=== PATIENT | female | born 1945 | race Caucasian/White ===

== ENCOUNTER → 2017-11-18 | Outpatient (CLI) | payer OTHER | END | disposition home or self-care (01) | LOC: NUCLEAR 07:49 | DX: I70.713 Atherosclerosis of other type of bypass graft(s) of the extremities with intermittent claudication, bilateral legs (principal); I87.2 Venous insufficiency (chronic) (peripheral) ==

== ENCOUNTER → 2017-11-19 | Outpatient (CLI) | payer OTHER | END | disposition home or self-care (01) | LOC: NUCLEAR 07:45 | DX: I70.713 Atherosclerosis of other type of bypass graft(s) of the extremities with intermittent claudication, bilateral legs (principal); I73.9 Peripheral vascular disease, unspecified ==

== ENCOUNTER 2018-05-02 07:57 | Outpatient (CLI) | payer OTHER | END 2018-05-02 07:59 | disposition home or self-care (01) | LOC: RAD 07:57 | DX: M25.571 Pain in right ankle and joints of right foot (principal) ==

== ENCOUNTER → 2018-05-02 | Outpatient (CLI) | payer OTHER | END | disposition home or self-care (01) | LOC: NUCLEAR 11:08 | DX: I70.211 Atherosclerosis of native arteries of extremities with intermittent claudication, right leg (principal); I87.2 Venous insufficiency (chronic) (peripheral) ==

== ENCOUNTER → 2018-05-05 | Outpatient (CLI) | payer OTHER | END | disposition home or self-care (01) | LOC: NUCLEAR 10:46 | DX: I70.211 Atherosclerosis of native arteries of extremities with intermittent claudication, right leg (principal) ==

== ENCOUNTER 2018-10-30 15:12 | Outpatient (CLI) | payer OTHER | END 2018-10-30 15:17 | disposition home or self-care (01) | LOC: MAMO-SONO 15:12 | DX: Z12.31 Encounter for screening mammogram for malignant neoplasm of breast (principal); Z87.898 Personal history of other specified conditions; N60.12 Diffuse cystic mastopathy of left breast ==

== ENCOUNTER 2020-05-16 04:58 | Outpatient (CLI) | payer OTHER | END 2020-05-16 16:59 | disposition home or self-care (01) | LOC: PPH VACUNA 04:58 | PROVIDERS: ATTEND Emergency Medicine Pediatric Emergency Medicine | DX: Z23 Encounter for immunization (principal) ==

== ENCOUNTER 2020-05-31 | Outpatient (CLI) | payer OTHER | END 2020-05-31 10:00 | disposition home or self-care (01) | LOC: PPH VACUNA | PROVIDERS: ATTEND Emergency Medicine Pediatric Emergency Medicine | DX: Z23 Encounter for immunization (principal) ==

== ENCOUNTER 2021-01-17 08:00 | Outpatient (CLI) | payer OTHER | END 2021-01-17 08:30 | disposition home or self-care (01) | LOC: PPH VACUNA 08:00 | PROVIDERS: ATTEND Emergency Medicine Pediatric Emergency Medicine | DX: Z23 Encounter for immunization (principal) ==

== ENCOUNTER 2022-09-25 07:43 | Outpatient (CLI) | payer OTHER | END 2022-09-25 07:48 | disposition home or self-care (01) | LOC: MAMO-SONO 07:43 | DX: Z12.31 Encounter for screening mammogram for malignant neoplasm of breast (principal); N64.4 Mastodynia ==

== ENCOUNTER 2023-05-01 13:07 | Inpatient (IN) | payer OTHER ==
[~2023-05-01] VITALS: Ht 152.4 cm; Wt 53.1 kg
[2023-05-01] MEDS ORDERED: AMLODIPINE-OLM1 EACH (13:33)
[2023-05-01] MEDS ORDERED: AVAPRO300 MG (13:33)
[2023-05-01] MEDS ORDERED: ATORVASTATIN CA40 MG (13:33)
[2023-05-01] MEDS ORDERED: ASPIRIN81 MG (13:34)
[2023-05-01 19:38] LABS: ABG PO2 61.8 mmHg (80-100); ABG pCO2 32.4 mmHg (35-45); BASE EXCESS -1.1 mmol/l; SaO2 92.4 %; Tco2 22.9 mmol/l; allen test SATISFACTORY; o2 21 %; puncture site RADIAL RIGHT
[2023-05-01 19:40] LABS: MEAN CELL VOLUME 94.8 fL (80.00-100.00); MEAN CORPUSCULAR HEMOGLOBIN 32.4 pg (27.00-32.0); MEAN CORPUSCULAR HGB CONC 34.2 g/dl (32.0-36.0); PLATELET COUNT 246 K/uL (150-450); RED BLOOD COUNT 4.32 M/uL (4.00-6.00)
[2023-05-01 19:44] LABS: ERYTHROCYTE SEDIMENTATION RATE 31 mm/hr
[2023-05-01 19:49] LABS: INR 0.97; PARTIAL THROMBOPLASTIN TIME 26.2 SECONDS (22.0-34.0); PROTHROMBIN TIME 10.2 SECONDS (9.0-11.5)
[2023-05-01 20:08] LABS: ALBUMIN 3.7 gm/dL (3.4-5.0); BILIRUBIN TOTAL 0.53 mg/dL (0.3-1.2); C-REACTIVE PROTEIN 15.9 MG/DL (0.00-0.29); CALCIUM 9.2 mg/dL (8.5-10.1); CREATININE SERUM 1.62 mg/dL (0.55-1.02); GFR 30.81; GLOBULINA 3.2 G/DL (2.4-3.5); POTASSIUM 4.06 mEq/L (3.5-5.1); TOTAL PROTEIN 6.9 gm/dL (6.4-8.2)
[2023-05-02 03:59] LABS: FERRITIN 491.3 NG/ML (8-252); MAGNESIUM 1.7 mg/dL (1.8-2.4); PHOSPHOROUS 3.8 mg/dL (2.5-4.9)
[2023-05-02 05:55] LABS: PH,URINE 5.5 (5.0-8.0); URINE APPEARANCE Cloudy; URINE BILIRRUBIN Negative (NEGATIVE); URINE BLOOD Negative; URINE COLOR Yellow; URINE LEUKOCYTE Negative; URINE NITRATE Negative; URINE PROTEIN 30 (NEGATIVE); URINE UROBILINOGEN 0.2 E.U./dl
[2023-05-02 06:02] LABS: URINE EPITHELIAL CELLS 24.8 uL (0.0-38.8); URINE RBC 3899.3 uL (0.0-20.8); URINE WBC 4.9 uL (0.0-23.2)
[2023-05-02 06:38] LABS: URINE BACTERIA > 9821.5 uL (0.0-1933); URINE GLUCOSE 500 MG/DL (NEGATIVE)
[2023-05-02 11:17] LABS: RH POSITIVE
[2023-05-02 11:25] LABS: D DIMER 6.12 MG/L
[2023-05-02 11:30] LABS: ALBUMIN 3.3 gm/dL (3.4-5.0); BILIRUBIN TOTAL 0.45 mg/dL (0.3-1.2); CALCIUM 8.8 mg/dL (8.5-10.1); CREATININE SERUM 1.4 mg/dL (0.55-1.02); GFR 36.46; GLOBULINA 3.3 G/DL (2.4-3.5); POTASSIUM 3.74 mEq/L (3.5-5.1); TOTAL PROTEIN 6.6 gm/dL (6.4-8.2)
[2023-05-03 07:33] LABS: FERRITIN 391.9 NG/ML (8-252)
[2023-05-03 08:28] LABS: MYCOPLASMA PNEUMONIAE IGM NON REACTIVE (NO REACTIVE)
[2023-05-04 08:33] LABS: ALBUMIN 2.8 gm/dL (3.4-5.0); BILIRUBIN TOTAL 0.17 mg/dL (0.3-1.2); CALCIUM 8.4 mg/dL (8.5-10.1); CREATININE SERUM 0.91 mg/dL (0.55-1.02); GFR 59.94; GLOBULINA 2.4 G/DL (2.4-3.5); MAGNESIUM 1.6 mg/dL (1.8-2.4); PHOSPHOROUS 2.2 mg/dL (2.5-4.9); POTASSIUM 4.41 mEq/L (3.5-5.1); TOTAL PROTEIN 5.2 gm/dL (6.4-8.2)
[2023-05-04 08:36] LABS: C-REACTIVE PROTEIN 3.87 MG/DL (0.00-0.29)
[2023-05-04 13:38] LABS: HEMATOCRIT 32.4 % (36.0-45.00); HEMOGLOBIN 11.1 g/dL (12.0-15.00); MEAN CELL VOLUME 94.9 fL (80.00-100.00); MEAN CORPUSCULAR HEMOGLOBIN 32.6 pg (27.00-32.0); MEAN CORPUSCULAR HGB CONC 34.4 g/dl (32.0-36.0); PLATELET COUNT 227 K/uL (150-450); RED BLOOD COUNT 3.41 M/uL (4.00-6.00)
[2023-05-05 05:07] LABS: URINE APPEARANCE CLEAR; URINE BILIRRUBIN NEGATIVE (NEGATIVE); URINE BLOOD NEGATIVE; URINE COLOR YELLOW; URINE GLUCOSE >=1000 MG/DL (NEGATIVE); URINE PROTEIN NEGATIVE (NEGATIVE)
[2023-05-05 05:08] LABS: URINE BACTERIA SOME; URINE LEUKOCYTE NEGATIVE; URINE NITRATE NEGATIVE; URINE RBC 0-3 /HPF; URINE UROBILINOGEN 0.2 E.U./dl; URINE WBC 0-2 /hpf
[2023-05-05 08:23] LABS: FERRITIN 317.4 NG/ML (8-252)
[2023-05-05 11:52] LABS: ABG PH 7.426 (7.35-7.45); ABG PO2 77.3 mmHg (80-100); SaO2 95.5 %
[2023-05-05 11:53] LABS: BASE EXCESS -3.8 mmol/l; BICARBONATE 19.3 mmol/l (23-25); Tco2 20.2 mmol/l; allen test SATISFACTORY; o2 21 %; puncture site RADIAL LEFT
[2023-05-07 07:56] LABS: HEMATOCRIT 37.3 % (36.0-45.00); HEMOGLOBIN 12.7 g/dL (12.0-15.00); MEAN CELL VOLUME 95.5 fL (80.00-100.00); MEAN CORPUSCULAR HEMOGLOBIN 32.5 pg (27.00-32.0); PLATELET COUNT 271 K/uL (150-450); RED CELL DISTRIBUTION WIDTH 14.1 % (11.5-14.5)
[2023-05-07 08:36] LABS: ALBUMIN 3.1 gm/dL (3.4-5.0); BILIRUBIN TOTAL 0.3 mg/dL (0.3-1.2); CALCIUM 8.9 mg/dL (8.5-10.1); CREATININE SERUM 0.85 mg/dL (0.55-1.02); GFR 64.85; GLOBULINA 2.7 G/DL (2.4-3.5); MAGNESIUM 1.6 mg/dL (1.8-2.4); POTASSIUM 4.33 mEq/L (3.5-5.1); TOTAL PROTEIN 5.8 gm/dL (6.4-8.2)
[2023-05-07 08:46] LABS: PHOSPHOROUS 1.9 mg/dL (2.5-4.9)
[2023-05-07 16:15] LABS: FERRITIN 487.8 NG/ML (8-252)
[2023-05-08 06:28] LABS: HEMATOCRIT 35.3 % (36.0-45.00); HEMOGLOBIN 11.9 g/dL (12.0-15.00); MEAN CELL VOLUME 94.8 fL (80.00-100.00); MEAN CORPUSCULAR HEMOGLOBIN 31.9 pg (27.00-32.0); MEAN CORPUSCULAR HGB CONC 33.7 g/dl (32.0-36.0); PLATELET COUNT 260 K/uL (150-450); RED BLOOD COUNT 3.73 M/uL (4.00-6.00); RED CELL DISTRIBUTION WIDTH 14.3 % (11.5-14.5)
[2023-05-08 07:04] LABS: ALBUMIN 2.9 gm/dL (3.4-5.0); BILIRUBIN TOTAL 0.31 mg/dL (0.3-1.2); CREATININE SERUM 0.8 mg/dL (0.55-1.02); GFR 69.55; GLOBULINA 2.8 G/DL (2.4-3.5); MAGNESIUM 2.1 mg/dL (1.8-2.4); PHOSPHOROUS 3.3 mg/dL (2.5-4.9); POTASSIUM 5.07 mEq/L (3.5-5.1); TOTAL PROTEIN 5.7 gm/dL (6.4-8.2)
[2023-05-09 06:51] LABS: HEMATOCRIT 31.9 % (36.0-45.00); HEMOGLOBIN 10.9 g/dL (12.0-15.00); MEAN CELL VOLUME 94.6 fL (80.00-100.00); MEAN CORPUSCULAR HEMOGLOBIN 32.4 pg (27.00-32.0); MEAN CORPUSCULAR HGB CONC 34.2 g/dl (32.0-36.0); PLATELET COUNT 226 K/uL (150-450); RED BLOOD COUNT 3.37 M/uL (4.00-6.00); RED CELL DISTRIBUTION WIDTH 14.5 % (11.5-14.5)
[2023-05-09 07:35] LABS: BILIRUBIN TOTAL 0.29 mg/dL (0.3-1.2); CALCIUM 8.8 mg/dL (8.5-10.1); CREATININE SERUM 0.9 mg/dL (0.55-1.02); GFR 60.71; GLOBULINA 2.5 G/DL (2.4-3.5); PHOSPHOROUS 2.7 mg/dL (2.5-4.9); POTASSIUM 4.58 mEq/L (3.5-5.1); TOTAL PROTEIN 5.5 gm/dL (6.4-8.2)
[2023-05-09 07:39] LABS: C-REACTIVE PROTEIN 0.77 MG/DL (0.00-0.29)
[2023-05-09 07:45] LABS: FERRITIN 418.4 NG/ML (8-252)
[2023-05-09 07:51] LABS: PLATELET ESTIMATE NORMAL (NORMAL)
[2023-05-10 06:30] LABS: HEMATOCRIT 35.3 % (36.0-45.00); MEAN CELL VOLUME 96.1 fL (80.00-100.00); MEAN CORPUSCULAR HEMOGLOBIN 32.6 pg (27.00-32.0); MEAN CORPUSCULAR HGB CONC 33.9 g/dl (32.0-36.0); PLATELET COUNT 245 K/uL (150-450); RED BLOOD COUNT 3.67 M/uL (4.00-6.00); RED CELL DISTRIBUTION WIDTH 14.3 % (11.5-14.5)
== END 2023-05-10 17:44 | disposition home or self-care (01) | DRG 177 ==
LOC: ER 13:08 → SURH 22:28 → MEDJ 05-05 11:26
PROVIDERS: General Practice; Internal Medicine; Internal Medicine Infectious Disease; Internal Medicine Pulmonary Disease; ADMIT Internal Medicine; ATTEND Internal Medicine
PROC: BW24YZZ Computerized Tomography (CT Scan) of Chest and Abdomen using Other Contrast (ICD-10-PCS; 2023-05-01)
PROC: XW033E5 Introduction of Remdesivir Anti-infective into Peripheral Vein, Percutaneous Approach, New Technology Group 5 (ICD-10-PCS; principal; 2023-05-02)
PROC: 4A12X4Z Monitoring of Cardiac Electrical Activity, External Approach (ICD-10-PCS; 2023-05-02)
PROC: 02HV33Z Insertion of Infusion Device into Superior Vena Cava, Percutaneous Approach (ICD-10-PCS; 2023-05-04)
DX: U07.1 COVID-19 (principal); J12.82 Pneumonia due to coronavirus disease 2019; N17.9 Acute kidney failure, unspecified; J90 Pleural effusion, not elsewhere classified; E78.5 Hyperlipidemia, unspecified; I12.9 Hypertensive chronic kidney disease with stage 1 through stage 4 chronic kidney disease, or unspecified chronic kidney disease; N18.9 Chronic kidney disease, unspecified; E11.22 Type 2 diabetes mellitus with diabetic chronic kidney disease; Z79.4 Long term (current) use of insulin

== ENCOUNTER 2023-05-21 07:50 | Outpatient (CLI) | payer OTHER ==
[~2023-05-21 07:50] MED LIST: AMLODIPINE-OLM1 EACH; ASPIRIN81 MG; ATORVASTATIN CA40 MG; AVAPRO300 MG
== END 2023-05-21 07:57 | disposition home or self-care (01) ==
LOC: RAD 07:50
PROVIDERS: ATTEND Internal Medicine
DX: U07.1 COVID-19 (principal); R06.02 Shortness of breath

== ENCOUNTER 2023-05-21 08:36 | Outpatient (CLI) | payer OTHER | END 2023-05-21 08:37 | disposition home or self-care (01) | LOC: NUCLEAR 08:36 | PROVIDERS: ATTEND Internal Medicine | DX: U07.1 COVID-19 (principal); R06.02 Shortness of breath ==

== ENCOUNTER 2023-11-25 07:44 | Outpatient (CLI) | payer OTHER ==
[~2023-11-25 07:44] MED LIST changes: +AMLODIPINE BESYL5 MG PO; +ATORVASTATIN CA20 MG PO; +CARAFATE1 GM PO; +DULOXETINE HCL30 MG PO; +METFORMIN HCL500 M4 PO; +PEPCID AC20 MG PO; +TOLTERODINE TART4 MG PO; +VASOFLEX TABLE1 EACH PO; +VITAMIN D31 ML MC; +ZOFRAN8 MG PO
== END 2023-11-25 08:01 | disposition home or self-care (01) ==
LOC: TOM 07:44
PROVIDERS: ATTEND Internal Medicine Gastroenterology
DX: K56.600 Partial intestinal obstruction, unspecified as to cause (principal); Z12.11 Encounter for screening for malignant neoplasm of colon

== ENCOUNTER 2024-01-20 07:56 | Outpatient (CLI) | payer OTHER | END 2024-01-20 07:57 | disposition home or self-care (01) | LOC: NUCLEAR 07:56 | PROVIDERS: ATTEND Internal Medicine Hematology & Oncology | DX: C85.80 Other specified types of non-Hodgkin lymphoma, unspecified site (principal); E06.3 Autoimmune thyroiditis; D51.1 Vitamin B12 deficiency anemia due to selective vitamin B12 malabsorption with proteinuria; D72.828 Other elevated white blood cell count; I10 Essential (primary) hypertension; E11.9 Type 2 diabetes mellitus without complications; E78.2 Mixed hyperlipidemia; R32 Unspecified urinary incontinence; E55.9 Vitamin D deficiency, unspecified; I70.213 Atherosclerosis of native arteries of extremities with intermittent claudication, bilateral legs; I88.0 Nonspecific mesenteric lymphadenitis | CPT/HCPCS: 78816; A9552 ==

== ENCOUNTER 2024-02-12 07:42 | Outpatient (CLI) | payer OTHER | END 2024-02-12 07:49 | disposition home or self-care (01) | LOC: MAMO-SONO 07:42 | PROVIDERS: ATTEND Surgery | DX: N60.11 Diffuse cystic mastopathy of right breast (principal); N60.12 Diffuse cystic mastopathy of left breast; Z12.31 Encounter for screening mammogram for malignant neoplasm of breast ==

== ENCOUNTER → 2024-05-18 08:11 | Outpatient (CLI) | payer OTHER ==
[2024-05-18 08:51] LABS: HEMATOCRIT 41.4 % (36.0-45.00); HEMOGLOBIN 14.3 g/dL (12.0-15.00); MEAN CELL VOLUME 95.3 fL (80.00-100.00); MEAN CORPUSCULAR HGB CONC 34.6 g/dl (32.0-36.0); PLATELET COUNT 237 K/uL (150-450); RED BLOOD COUNT 4.35 M/uL (4.00-6.00); RED CELL DISTRIBUTION WIDTH 14.6 % (11.5-14.5)
[2024-05-18 09:54] LABS: BILIRUBIN TOTAL 0.46 mg/dL (0.3-1.2); BILIRUBIN,CONJUGATED 0.14 mg/dL (0.0-0.2); BILIRUBIN,UNCONJUGATED 0.32 mg/dL (0.0-0.6); CALCIUM 9.7 mg/dL (8.5-10.1); CHOL HDL RATIO 2.1 (0-5.0); CREATININE SERUM 0.89 mg/dL (0.55-1.02); GFR 61.34; GLOBULINA 2.9 G/DL (2.4-3.5); PHOSPHOROUS 3.6 mg/dL (2.5-4.9); POTASSIUM 4.3 mEq/L (3.5-5.1); T4 FREE 0.95 NG/ML (0.76-1.46); TOTAL PROTEIN 6.9 gm/dL (6.4-8.2); TSH 2.72 uIU/mL (0.358-3.74)
[2024-05-18 10:11] LABS: MANUAL PLATELET COUNT 242
[2024-05-18 10:12] LABS: PLATELET ESTIMATE NORMAL (NORMAL)
[2024-05-18 10:48] LABS: PH,URINE 5.5 (5.0-8.0); URINE APPEARANCE Clear; URINE BILIRRUBIN Negative (NEGATIVE); URINE BLOOD Negative; URINE COLOR Yellow; URINE KETONE Negative (NEGATIVE); URINE LEUKOCYTE Negative; URINE NITRATE Negative; URINE PROTEIN Negative (NEGATIVE); URINE UROBILINOGEN 0.2 E.U./dl
[2024-05-18 10:52] LABS: URINE BACTERIA 36.7 uL (0.0-1933); URINE EPITHELIAL CELLS 5.5 uL (0.0-38.8); URINE WBC 34.7 uL (0.0-23.2)
[2024-05-18 10:56] LABS: URINE GLUCOSE >=1000 MG/DL (NEGATIVE); URINE RBC 1.3 uL (0.0-20.8)
[2024-05-18 11:21] LABS: FOLIC ACID > 20.00 ng/ml (4.78-20); VITAMIN D3 25 HYDROXY 56.72 ng/ml (30-120)
== END | disposition home or self-care (01) ==
LOC: LAB 08:11
PROVIDERS: ATTEND Internal Medicine Hematology & Oncology
DX: E06.3 Autoimmune thyroiditis (principal); D51.1 Vitamin B12 deficiency anemia due to selective vitamin B12 malabsorption with proteinuria; D72.828 Other elevated white blood cell count; I10 Essential (primary) hypertension; E11.9 Type 2 diabetes mellitus without complications; E78.2 Mixed hyperlipidemia; R32 Unspecified urinary incontinence; E55.9 Vitamin D deficiency, unspecified; I73.9 Peripheral vascular disease, unspecified; I88.0 Nonspecific mesenteric lymphadenitis; C85.80 Other specified types of non-Hodgkin lymphoma, unspecified site; D64.9 Anemia, unspecified; R10.9 Unspecified abdominal pain; K76.0 Fatty (change of) liver, not elsewhere classified; E11.65 Type 2 diabetes mellitus with hyperglycemia; N39.0 Urinary tract infection, site not specified; R94.6 Abnormal results of thyroid function studies; D35.2 Benign neoplasm of pituitary gland; E22.1 Hyperprolactinemia